=== PATIENT | male | born 1945 | race Caucasian/White ===

== ENCOUNTER 2021-08-26 15:51 | Inpatient (IN) ==
[2021-08-26] MEDS ORDERED: Melatonin 3 MG TABLET PO PRN (20:40)
[2021-08-26] MEDS ORDERED: Naloxone 0.4 MG/ML INJ IVP PRN (20:40)
[2021-08-26] MEDS ORDERED: D5% in Water 1,000 ML IVC PRN (21:12)
[2021-08-26] MEDS ORDERED: Dextrose Gel 15 GM/37.5 ML TUBE PO PRN ×2 (21:12)
[2021-08-26] MEDS ORDERED: *HR* Dextrose 50 % in Water (Syg) 50 ML SYRINGE IVP PRN (21:12)
[2021-08-26 21:31] LABS: Basophils # 0.1 K/mcL (0.0-0.2); Basophils % 0.6 %; Eosinophils # 0.1 K/mcL (0.0-0.6); Eosinophils % 0.4 %; Hematocrit 35.4 % (37.5-50.1); Hemoglobin 11.4 g/dL (12.9-16.9); Lymphocytes # 1.2 K/mcL (0.6-4.6); Lymphocytes % 8.8 %; Mean Corpuscular HGB Conc 32.2 g/dL (31.6-35.5); Mean Corpuscular Hemoglobin 29.8 pg (28.0-33.3); Mean Corpuscular Volume 92.7 fL (83.0-100.0); Mean Platelet Volume 10.8 fL (9.4-12.4); Monocytes # 1.1 K/mcL (0.0-1.3); Monocytes % 8.1 %; Neutrophils # 11.3 K/mcL (1.6-8.9); Platelet Count 117 K/mcL (140-400); Red Blood Count 3.82 M/mcL (4.19-5.50); Red Cell Distribution Width 20.5 % (11.5-14.5); Segmented Neutrophils % 81.1 %; White Blood Count 13.9 K/mcL (4.3-11.1)
[2021-08-26 21:50] LABS: Calcium 8.7 mg/dL (8.6-10.3); Potassium 4.9 mEq/L (3.5-5.1)
[2021-08-26] MEDS ORDERED: *HR* Metoprolol 5 MG/5 ML VIAL IVP ONE (23:11)
[2021-08-26] MEDS: Mirtazapine 15 MG TABLET PO SCH (23:29)
[2021-08-26] MEDS: Melatonin 3 MG TABLET PO SCH (23:30)
[2021-08-27 01:11] LABS: Hematocrit 36.3 % (37.5-50.1); Hemoglobin 11.7 g/dL (12.9-16.9); Mean Corpuscular HGB Conc 32.2 g/dL (31.6-35.5); Mean Corpuscular Hemoglobin 29.8 pg (28.0-33.3); Mean Corpuscular Volume 92.4 fL (83.0-100.0); Mean Platelet Volume 11.1 fL (9.4-12.4); Platelet Count 124 K/mcL (140-400); Red Blood Count 3.93 M/mcL (4.19-5.50); Red Cell Distribution Width 20.5 % (11.5-14.5); White Blood Count 15.5 K/mcL (4.3-11.1)
[2021-08-27 01:23] LABS: INR 2.8
[2021-08-27 01:30] LABS: Albumin 2.7 g/dL (3.5-5.7); Albumin/Globulin Ratio 0.7 (1.1-2.2); Calcium 8.4 mg/dL (8.6-10.3); Potassium 5.2 mEq/L (3.5-5.1); Total Protein 6.7 g/dL (6.4-8.9)
[2021-08-27] MEDS ORDERED: *HR* Metoprolol 5 MG/5 ML VIAL IVP ONE ×2 (01:43→06:54)
[2021-08-27] MEDS ORDERED: *HR* Heparin 5,000 UNIT/ML VIAL SQ SCH (06:00)
[2021-08-27] MEDS: Vitamin B Complex/Vit C/Vit E 1 EACH TABLET PO SCH (08:29)
[2021-08-27] MEDS: Finasteride 5 MG TABLET PO SCH (08:31)
[2021-08-27] MEDS: Insulin LISPRO 300 UNITS/3 ML VIAL SUBQ SCH ×4 (08:31→20:18)
[2021-08-27] MEDS: Piperacillin/Tazobactam 3.375 GM in 0.9 % Sodium Chloride Mini Bag 100 ML IVPB SCH ×2 (08:34→16:07)
[2021-08-27] MEDS ORDERED: Vancomycin 1,750 MG/517.5 ML IV.SOLN IVPB SCH (09:00)
[2021-08-27] MEDS ORDERED: *HR* Metoprolol 5 MG/5 ML VIAL IVP PRN (09:22)
[2021-08-27 10:09] LABS: Calcium 8.5 mg/dL (8.6-10.3); Potassium 5.2 mEq/L (3.5-5.1)
[2021-08-27 10:15] LABS: Troponin I 0.05 ng/mL (< 0.04)
[2021-08-27] MEDS ORDERED: 0.9 % Sodium Chloride 1,000 ML IV ONE (10:25)
[2021-08-27] MEDS: Sodium Bicarbonate 150 MEQ in D5% in Water 1,000 ML IVC SCH ×3 (13:00→13:03)
[2021-08-27 14:04] LABS: Albumin 2.9 g/dL (3.5-5.7); Albumin/Globulin Ratio 0.8 (1.1-2.2); Bilirubin,Direct 1.1 mg/dL (0.0-0.2); Bilirubin,Indirect 0.9 mg/dL (0.0-1.0); Globulin 3.8 g/dL (2.4-3.5); Magnesium 1.8 mg/dL (1.6-2.6); Total Protein 6.7 g/dL (6.4-8.9); Troponin I 0.05 ng/mL (< 0.04)
[2021-08-27] MEDS ORDERED: 0.9 % Sodium Chloride 1,000 ML IVC SCH (14:30)
[2021-08-27 16:40] LABS: ABG Base Excess -1 mEq/L (-2 to 3); ABG HCO3 22 mEq/L (21-27); ABG Oxygen Saturation 99 % (95-98); ABG PCO2 30 mmHg (35-45); ABG PH 7.46 pH Units (7.32-7.45); ABG PO2 119 mmHg (85-104); ABG TCO2 23 mEq/L (20-26)
[2021-08-27] MEDS: Melatonin 3 MG TABLET PO SCH (20:26)
[2021-08-27] MEDS: Mirtazapine 15 MG TABLET PO SCH (20:26)
[2021-08-28] MEDS: Piperacillin/Tazobactam 3.375 GM in 0.9 % Sodium Chloride Mini Bag 100 ML IVPB SCH ×3 (00:15→17:04)
[2021-08-28 00:52] LABS: Basophils # 0.1 K/mcL (0.0-0.2); Basophils % 0.4 %; Eosinophils # 0.1 K/mcL (0.0-0.6); Eosinophils % 0.7 %; Hematocrit 33.7 % (37.5-50.1); Hemoglobin 11.1 g/dL (12.9-16.9); Immature Granulocytes % 1.3 % (0-4); Immature Platelets 7.1 % (1.1-6.1); Lymphocytes # 1.2 K/mcL (0.6-4.6); Lymphocytes % 8.1 %; Mean Corpuscular HGB Conc 32.9 g/dL (31.6-35.5); Mean Corpuscular Hemoglobin 30.2 pg (28.0-33.3); Mean Corpuscular Volume 91.6 fL (83.0-100.0); Mean Platelet Volume 11.2 fL (9.4-12.4); Monocytes # 1.3 K/mcL (0.0-1.3); Monocytes % 8.3 %; Neutrophils # 12.3 K/mcL (1.6-8.9); Nucleated Red Blood Cells 0.1 /100 WBC (0); Platelet Count 104 K/mcL (140-400); Red Blood Count 3.68 M/mcL (4.19-5.50); Red Cell Distribution Width 20.6 % (11.5-14.5); Segmented Neutrophils % 81.2 %; White Blood Count 15.1 K/mcL (4.3-11.1)
[2021-08-28 01:08] LABS: Albumin 2.5 g/dL (3.5-5.7); Albumin/Globulin Ratio 0.7 (1.1-2.2); Bilirubin,Direct 0.9 mg/dL (0.0-0.2); Bilirubin,Indirect 0.9 mg/dL (0.0-1.0); Bilirubin,Total 1.8 mg/dL (0.3-1.0); Calcium 8.1 mg/dL (8.6-10.3); Globulin 3.7 g/dL (2.4-3.5); Potassium 4.9 mEq/L (3.5-5.1); Total Protein 6.2 g/dL (6.4-8.9)
[2021-08-28 05:15] LABS: INR 2.3; Prothrombin Time 25.5 Seconds (9.4-12.1)
[2021-08-28] MEDS: Finasteride 5 MG TABLET PO SCH (08:43)
[2021-08-28] MEDS: Vitamin B Complex/Vit C/Vit E 1 EACH TABLET PO SCH (08:43)
[2021-08-28] MEDS: Metoprolol XL (24 HR) Succ 25 MG TAB.ER.24H PO SCH (08:43)
[2021-08-28] MEDS: Insulin LISPRO 300 UNITS/3 ML VIAL SUBQ SCH ×4 (08:58→22:09)
[2021-08-28] MEDS ORDERED: *HR* OxyCODONE Immed Rel 5 MG TABLET PO PRN (09:11)
[2021-08-28 11:08] LABS: Estimated Average Glucose 180 mg/dl; Hemoglobin A1C 7.9 %
[2021-08-28] MEDS: Sodium Bicarbonate 150 MEQ in D5% in Water 1,000 ML IVC SCH (12:03)
[2021-08-28 12:38] LABS: RBC,Pleural Fluid 2000 RBC/mcL
[2021-08-28 13:02] LABS: Glucose,Pleural Fluid 190 mg/dL (No Ref Range); LDH,Pleural Fluid 104 Units/L (No Ref Range); Total Protein,Pleural Fluid < 2.0 g/dL
[2021-08-28 13:32] LABS: Basophils,Pleural Fluid 0 %; Eosinophils,Pleural Fluid 0 %
[2021-08-28 13:33] LABS: Appearance of Pleural Fl Clear (Clear)
[2021-08-28] MEDS ORDERED: Vancomycin 1,500 MG/265 ML IV.SOLN IVPB ONE (15:00)
[2021-08-28] MEDS: Apixaban 5 MG TABLET PO SCH (22:09)
[2021-08-28] MEDS: Mirtazapine 15 MG TABLET PO SCH (22:09)
[2021-08-28] MEDS: Lactobacillus 1 EACH CAP.SPRINK PO SCH (22:09)
[2021-08-28] MEDS: Melatonin 3 MG TABLET PO SCH (22:09)
[2021-08-29] MEDS: Piperacillin/Tazobactam 3.375 GM in 0.9 % Sodium Chloride Mini Bag 100 ML IVPB SCH ×2 (00:26→09:23)
[2021-08-29 01:59] LABS: Basophils % 0.3 %; Eosinophils % 1.2 %; Mean Corpuscular Volume 93.1 fL (83.0-100.0)
[2021-08-29 02:01] LABS: Eosinophils # 0.2 K/mcL (0.0-0.6); Hematocrit 33.9 % (37.5-50.1); Hemoglobin 10.8 g/dL (12.9-16.9); Immature Platelets 8.6 % (1.1-6.1); Lymphocytes # 1.3 K/mcL (0.6-4.6); Lymphocytes % 8.8 %; Mean Corpuscular HGB Conc 31.9 g/dL (31.6-35.5); Mean Corpuscular Hemoglobin 29.7 pg (28.0-33.3); Mean Platelet Volume 11.4 fL (9.4-12.4); Monocytes % 9.9 %; Neutrophils # 11.5 K/mcL (1.6-8.9); Nucleated Red Blood Cells 0.2 /100 WBC (0); Platelet Count 104 K/mcL (140-400); Red Blood Count 3.64 M/mcL (4.19-5.50); Segmented Neutrophils % 78.8 %; White Blood Count 14.6 K/mcL (4.3-11.1)
[2021-08-29 02:11] LABS: Albumin 2.4 g/dL (3.5-5.7); Albumin/Globulin Ratio 0.7 (1.1-2.2); Bilirubin,Direct 1.1 mg/dL (0.0-0.2); Bilirubin,Indirect 0.7 mg/dL (0.0-1.0); Bilirubin,Total 1.8 mg/dL (0.3-1.0); Calcium 7.8 mg/dL (8.6-10.3); Globulin 3.6 g/dL (2.4-3.5); Magnesium 2.1 mg/dL (1.6-2.6); Potassium 4.7 mEq/L (3.5-5.1)
[2021-08-29 02:20] LABS: INR 2.2; Prothrombin Time 24.8 Seconds (9.4-12.1)
[2021-08-29 03:04] LABS: Monocytes # 1.5 K/mcL (0.0-1.3)
[2021-08-29 07:02] VITALS: TEMP 97.3; O2SAT 100
[2021-08-29] MEDS ORDERED: NON-FORMULARY MEDICATION 1 EACH EACH (Pantoprazole Sodium [Protonix] 40 MG Tablet.Dr) PO SCH (09:00)
[2021-08-29] MEDS ORDERED: Clotrimazole/Betameth Dip CRM 45 APPL/45 GM TUBE TP SCH (09:00)
[2021-08-29] MEDS: Sodium Bicarbonate 150 MEQ in D5% in Water 1,000 ML IVC SCH (09:24)
[2021-08-29] MEDS: Apixaban 5 MG TABLET PO SCH (09:27)
[2021-08-29] MEDS: Finasteride 5 MG TABLET PO SCH (09:27)
[2021-08-29] MEDS: Vitamin B Complex/Vit C/Vit E 1 EACH TABLET PO SCH (09:27)
[2021-08-29] MEDS: Metoprolol XL (24 HR) Succ 25 MG TAB.ER.24H PO SCH (09:27)
[2021-08-29] MEDS: Insulin LISPRO 300 UNITS/3 ML VIAL SUBQ SCH ×2 (09:27→11:14)
[2021-08-29] MEDS: Lactobacillus 1 EACH CAP.SPRINK PO SCH (09:27)
[2021-08-29 11:12] VITALS: BP 108/74; PULSE 73
== END 2021-08-29 12:19 | disposition home health service (06) | DRG 871 ==
LOC: 2ANU → SUATTDRO 20:40
PROVIDERS: ADMIT Family Medicine; ATTEND Pharmacist